=== PATIENT | male | born 1950 | race Caucasian/White ===

== ENCOUNTER 2019-04-28 18:22 | Emergency (ER) | payer MEDICARE, OTHER ==
[~2019-04-28] VITALS: Ht 177.8 cm; Wt 75.3 kg
[~2019-04-28 18:22] MED LIST: ALPR0.25 PO; ASPI325T17 PO; HYDR-3240 PO; MULT-6 PO; OMEP-110 PO; ONDA4TAB10 PO; OXYC-302 PO; glucosamine PO
--- NOTE | 2019-04-28 18:36 | NUR ---
STAFF ANESTHESIOLOGIST: Pt refused wheelchair from triage to room.
--- NOTE | 2019-04-28 18:40 | NUR ---
"I have been having pain in my arm that started this last week, was really mild, been working under the car, thought it was from having my arms above my head. This morning it got really bad, it started aching really bad on the back of my shoulder here, and my fingers burn and feel numb. 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 The pain is just out of control this afternoon. I have been eating Aspirin and Ibuprofen to try to help with the pain. I have had tightness in my chest." Pt denies sob, n/v/d, diaphoresis, or syncope.
[2019-04-28] MEDS ORDERED: ASPIRIN 81 MG TABLET CHEW ONE (19:17)
[2019-04-28 19:29] LABS: BASOPHILS # (AUTO) 0.02 x10^3/uL (0-0.1); BASOPHILS % (AUTO) 0 % (0-1); EOSINOPHILS % (AUTO) 5 % (1-7); LYMPHOCYTES # (AUTO) 1.56 x10^3/uL (1-3.4); LYMPHOCYTES % (AUTO) 20 % (22-44); MD NO; MEAN CORPUSCULAR HEMOGLOBIN 35.6 pg (27.5-34.5); MEAN CORPUSCULAR HGB CONC 33.3 g/dL (33.2-36.2); MEAN PLATELET VOLUME 8.6 fL (7.4-10.4); MONOCYTES # (AUTO) 0.61 x10^3/uL (0.2-0.8); MONOCYTES % (AUTO) 8 % (2-9); NEUTROPHILS # (AUTO) 5.27 x10^3/uL (1.8-6.8); NEUTROPHILS % (AUTO) 67 % (42-75); PLATELET COUNT 197 x10^3/uL (130-400); RED BLOOD COUNT 4.31 x10^6/uL (4.38-5.82); RED CELL DISTRIBUTION WIDTH 12.8 % (9.4-14.8)
[2019-04-28] MEDS ORDERED: SODIUM CHLORIDE FLUSH 10ML SYR IVF ONE (19:30)
[2019-04-28] MEDS ORDERED: ASPIRIN 81 MG TABLET CHEW PO ONE (19:30)
[2019-04-28 19:39] LABS: ALANINE AMINOTRANSFERASE 24 U/L (12-78); ALBUMIN 3.7 g/dL (3.4-5.0); ANION GAP 6 mmol/L (5-15); CALCIUM 8.2 mg/dL (8.5-10.1); CHLORIDE 108 mmol/L (98-107); CREATININE 1.05 mg/dL (0.7-1.3)
--- NOTE | 2019-04-28 19:40 | NUR ---
PRIOR TO ASA ADMIN CLARIFIED THAT PATIENT HAD NOT ALREADY TAKEN SOME ASA AT HOME. pATIENT REPORTS HE TOOK 650MG OF PO ASA AND 800MG OF MOTRIN AT 4PM TODAY. 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
[2019-04-28 19:43] LABS: ALKALINE PHOSPHATASE 70 U/L (45-117); BILIRUBIN,TOTAL 0.3 mg/dL (0.2-1.0); TROPONIN I < 0.015 ng/mL (0.000-0.045)
[2019-04-28 20:50] VITALS: BP 137/80
--- NOTE | 2019-04-28 21:10 | NUR ---
DRIVING HOME (ETOH LEVEL)
== END 2019-04-28 21:23 | disposition home or self-care (01) ==
LOC: ED 19:11
DX: M54.12 Radiculopathy, cervical region (principal); F10.220 Alcohol dependence with intoxication, uncomplicated; F17.210 Nicotine dependence, cigarettes, uncomplicated
CPT/HCPCS: 36415; 71045; 80053; 80307; 84484; 85025; 93005; 99284; J7512

== ENCOUNTER → 2020-09-08 | Outpatient (CLI) | payer MEDICARE ==
[~2020-09-08] MED LIST changes: +HYDR-1067 PO; -HYDR-3240 PO; -OXYC-302 PO; +OXYC1TAB14 PO
== END | disposition home or self-care (01) ==
LOC: RAD 14:17
PROVIDERS: ATTEND Family Medicine
DX: G31.9 Degenerative disease of nervous system, unspecified (principal); H92.01 Otalgia, right ear
CPT/HCPCS: 70450